=== PATIENT | male | born 1945 | race Caucasian/White ===

== ENCOUNTER → 2016-10-29 | Outpatient (CLI) | payer BC ==
[2016-10-29 11:39] LABS: ALT 49 U/L (21-72); AST 37 U/L (17-59); Alkaline Phosphatase 87 U/L (38-126); Anion Gap 13 mmol/L; Blood Urea Nitrogen 16 mg/dL (9-20); Calcium 9.4 mg/dL (8.4-10.2); Carbon Dioxide 26 mmol/L (22-30); Chloride 102 mmol/L (98-107); Cholesterol 131 mg/dL (<200); Glucose 120 mg/dL (74-99); HDL Cholesterol 37 mg/dL (40-60); Non-African American GFR(MDRD) >60 (>60 ml/min/1.73 sqM); Potassium 4.3 mmol/L (3.5-5.1); Sodium 141 mmol/L (137-145); Total Bilirubin 0.8 mg/dL (0.2-1.3); Triglycerides 141 mg/dL (<150)
== END | disposition home or self-care (01) ==
LOC: LABWHC1 11:12
PROVIDERS: ATTEND Internal Medicine Endocrinology, Diabetes & Metabolism
DX: E11.65 Type 2 diabetes mellitus with hyperglycemia (principal)
CPT/HCPCS: 36415; 80053; 80061; 82043; 84443

== ENCOUNTER → 2018-03-04 | Outpatient (CLI) | payer BC ==
[2018-03-04 08:32] LABS: ALT 43 U/L (21-72); AST 37 U/L (17-59); Albumin 4.2 g/dL (3.5-5.0); Alkaline Phosphatase 102 U/L (38-126); Anion Gap 12 mmol/L; Blood Urea Nitrogen 18 mg/dL (9-20); Calcium 9.1 mg/dL (8.4-10.2); Carbon Dioxide 27 mmol/L (22-30); Chloride 101 mmol/L (98-107); Cholesterol 144 mg/dL (<200); Glucose 201 mg/dL (74-99); HDL Cholesterol 32 mg/dL (40-60); LDL Cholesterol,Calculated 67 mg/dL (0-99); Potassium 4.9 mmol/L (3.5-5.1); Sodium 140 mmol/L (137-145); Total Bilirubin 0.4 mg/dL (0.2-1.3); Total Protein 6.9 g/dL (6.3-8.2); Triglycerides 227 mg/dL (<150)
[2018-03-04 19:30] LABS: Hemoglobin A1C 9.2 % (4.0-6.0)
== END | disposition home or self-care (01) ==
LOC: LABWHC1 07:27
PROVIDERS: ATTEND Internal Medicine Endocrinology, Diabetes & Metabolism
DX: E11.65 Type 2 diabetes mellitus with hyperglycemia (principal)
CPT/HCPCS: 36415; 80053; 80061; 82043; 82570; 83036

== ENCOUNTER → 2019-05-19 | Outpatient (CLI) | payer BC ==
--- NOTE | 2019-05-19 12:38 | ECHOS ---
STRESS ECHOCARDIOGRAM INDICATIONS: Chest pain, fatigue. BASELINE HEART RATE: 95 BASELINE BLOOD PRESSURE: 116/73 MAXIMUM HEART RATE: 141 MAXIMUM BLOOD PRESSURE: 144/40 85% MPHR: 124 100% MPHR: 146 METS: 6.2 MAXIMUM STAGE REACHED: 2 TOTAL EXERCISE TIME: 4:30 CLINICAL INFORMATION: STRESS DATA: Heart rate 95, pressure 116/73 mmHg. Baseline EKG showed sinus mechanism. The patient exercised on the Josse protocol for a total of 4 minutes and achieved 6.2 METS. Max heart rate was 141, which is about 96% of maximum predicted heart rate. Maximum blood pressure was 144/40 mmHg. Clinically, the patient developed shortness of breath in response to exercise. The EKG did not show any significant ST or T-wave abnormalities concerning for ischemia. ECHOCARDIOGRAM IMAGES: Echocardiogram images from parasternal long axis view, parasternal short axis view, apical 4 chamber and apical 2 chamber view were obtained at the baseline images, at peak heart rate as well as on recovery and the echocardiogram images showed good augmentation in the left ventricular systolic function. CONCLUSION: 1. Average exercise tolerance. 2. Good augmentation in the blood pressure and heart rate in response to exercise. 3. Normal EKG in response to exercise. 4. Normal echocardiogram in response to exercise as well. 5. Essentially normal stress echocardiogram for this patient. MMODL / IJN: [id number] /
== END | disposition home or self-care (01) ==
LOC: RADNMMAIN 09:58
PROVIDERS: ATTEND Family Medicine
DX: R06.02 Shortness of breath (principal); R53.83 Other fatigue
CPT/HCPCS: 93351; Q9950

== ENCOUNTER 2019-06-13 05:53 | Day surgery (SDC) | payer BC ==
[2019-06-13] MEDS ORDERED: ALPRAZolam 0.5 MG TAB PO PRN (06:05)
[2019-06-13] MEDS ORDERED: ATORVASTATIN 80 MG TAB PO STA (06:05)
[2019-06-13] MEDS ORDERED: ALPRAZolam 0.25 MG TAB PO PRN (06:05)
[2019-06-13] MEDS ORDERED: ASPIRIN 325 MG TAB PO STA (06:05)
[2019-06-13] MEDS ORDERED: NITROGLYCERIN SL TABS 0.4 MG TAB SUBLINGUAL PRN ×2 (06:05→08:56)
[2019-06-13] MEDS ORDERED: SODIUM CHLORIDE 0.9% 1,000 ML in EMPTY BAG 1 BAG IV ONE (06:05)
[2019-06-13 06:36] LABS: Glucose,Whole Blood 417 mg/dL (75-99)
[2019-06-13] MEDS ORDERED: INSULIN ASPART (NovoLOG) 100 UNIT/ML VIAL SQ ONE (06:40)
[2019-06-13 06:51] LABS: Calcium 9.5 mg/dL (8.4-10.2); Potassium 4.8 mmol/L (3.5-5.1)
[2019-06-13] MEDS ORDERED: MIDAZOLAM PF (FBP) 2 MG/2 ML VIAL IVP ONE (07:41)
[2019-06-13] MEDS ORDERED: LIDOCAINE 1% INJ 10MG/ML (20 ML MDV) SQ ONE (07:48)
[2019-06-13] MEDS: VERAPAMIL SYRINGE (5 MG/10 ML) INTRAARTER ONE ×2 (07:51→08:35)
[2019-06-13] MEDS ORDERED: HEPARIN SODIUM 1,000 UN/ML (10ML VL) IV ONE (07:53)
[2019-06-13] MEDS ORDERED: BIVALIRUDIN BOLUS 250 MG/50 ML IV ONE (08:07)
[2019-06-13] MEDS ORDERED: BIVALIRUDIN 250 MG in SODIUM CHLORIDE 0.9% 50 ML IV ONE (08:08)
[2019-06-13] MEDS ORDERED: HYDROmorphone 1 MG/ML 1 ML SYRINGE IVP ONE (08:25)
[2019-06-13] MEDS ORDERED: NITROGLYCERIN 1000MCG/10ML SYRINGE INTRACORON ONE (08:27)
[2019-06-13] MEDS ORDERED: IOPAMIDOL-370 125ML BTL INJ ONE (08:31)
[2019-06-13] MEDS ORDERED: TICAGRELOR 90 MG TAB PO ONE (08:38)
[2019-06-13] MEDS ORDERED: ZOLPIDEM 5 MG TAB PO PRN (08:56)
[2019-06-13] MEDS ORDERED: MAG HYDROX/AL HYDROX/SIMETH 30 ML CUP PO PRN (08:56)
[2019-06-13] MEDS ORDERED: ATROPINE SULFATE 0.1 MG/ML 10ML SYRINGE IV PRN (08:56)
[2019-06-13] MEDS ORDERED: RX INFO: IV CONTRAST WAS GIVEN 1 EACH MISC MISCELLANE PRN (08:56)
[2019-06-13 09:08] LABS: Glucose,Whole Blood 319 mg/dL (75-99)
--- NOTE | 2019-06-13 09:35 | CC ---
CARDIAC CATHETERIZATION REPORT DATE OF SERVICE: 06/13/2019 PROCEDURE: 1. Left heart catheterization and coronary angiography. 2. PTCA and stenting of proximal circumflex coronary artery with a drug-eluting stent. PERFORMED BY: Dr. Osito Nolasco. SEDATION: Moderate conscious sedation time was 48 minutes. Patient was administered Versed and Dilaudid. His oxygen saturation, hemodynamics and EKG were monitored closely. CLINICAL INFORMATION: Mr. Rony Ashraf is a 74-year-old gentleman with a history of hypertension, hypercholesterolemia and type 2 diabetes insulin-requiring, has been having exertional shortness of breath, chest tightness and had equivocal stress test. He was seen and evaluated by Dr. Flores, advised cardiac cath given his risk factors, presentation, symptomatology and equivocal stress test. I talked to the patient at length yesterday and discussed with him the rationale, risks, benefits, and options. He understood all details and wished to proceed with the procedure. PROCEDURE NOTE: Under local anesthesia and strict aseptic precautions, a 6-Polish introducer was placed in the right radial artery. Using a JL3.5 and JR4 catheters, I performed selective coronary angiography and the same right catheter was used to check LV pressures. LV gram was not performed. I then noted that there was a significant proximal circumflex lesion and proceeded to perform PCI in the same setting. LV-gram was not performed. CARDIAC CATHETERIZATION FINDINGS: The left ventricular end-diastolic pressure was about 8 mmHg and there was no gradient across the aortic valve. CORONARY ANGIOGRAPHY FINDINGS: RIGHT CORONARY ARTERY: A large dominant vessel which has about a 40% lesion in the proximal portion. Distally the caliber improves and bifurcates into PDA and PLV, both of which supply a fair amount of myocardium. No other significant disease. RCA is therefore dominant, has a 40% proximal lesion. LEFT MAIN CORONARY ARTERY: Short, patent, disease-free vessel that bifurcates into LAD and circumflex. Left main itself is free of significant disease. There is also what seems to be high obtuse marginal and a ramus branch that seems to come off. LEFT ANTERIOR DESCENDING CORONARY ARTERY: Good caliber vessel extends along the anterior wall, gives off septal and diagonal branches. There is moderate calcification. In the midportion there is a 40% lesion involving the LAD after the origin of a septal branch and before the diagonal branch. The caliber of the vessel improves, after that runs all the way to the apex supplying a sizable amount of myocardium. LAD is therefore a calcified vessel, has a 40% lesion in the midportion, right after septal branch and before the diagonal branch. RAMUS INTERMEDIUS: Good caliber, good distribution vessel that runs laterally, supplies a fair amount of myocardium, has no significant disease, has minor irregularities. There is also another branch that comes off from the ramus which is also tortuous and free of significant disease. LEFT POSTERIOR CIRCUMFLEX CORONARY ARTERY: Technically nondominant vessel but has a fair-sized obtuse marginal that runs laterally. Very proximally in a tortuous area, there is a 90% stenosis after which a left atrial circumflex branch comes off and then it runs laterally. It continues as an obtuse marginal. Proximal circumflex, therefore has a 90% lesion, eccentric in nature located in a tortuous segment. Left ventriculogram was not performed. FINAL IMPRESSION: This patient has a right dominant system, 40% proximal right coronary artery and 40% mid LAD disease and ramus is free of significant disease. Circumflex has a proximal 80%-90% stenosis, eccentric in nature with some calcification. LV pressures are normal and there is no gradient across the aortic valve. RECOMMENDATION: I am recommending PCI of circumflex and proceeded to perform this in the same setting. PCI PROCEDURE DETAILS: I used a JL4 guide catheter of 6-Polish caliber. Initially, I used a whisper wire, but with this wire, I kept going into the left atrial circumflex branch. I therefore switched over to a run-through wire with a steep curve. With this, I was able to keep the wire in the obtuse marginal. A 2.25 caliber 12 mm trek balloon was used to pre- dilate the lesion. I then deployed an 8 mm 2.25 caliber Xience stent at 10 atmospheres. Patient had significant chest pain but no significant EKG changes. Excellent angiographic result without complication was achieved. The sheath was then taken out and TR band applied as per protocol. Patient received Angiomax bolus and infusion as per protocol and he also received 180 mg of Brilinta. Saturation of the fingers of the right hand after the sheath removed was 95%. Moderate conscious sedation time was 48 minutes. Patient was administered Versed and Dilaudid. His oxygen saturation, hemodynamics and EKG were monitored closely. Patient tolerated procedure well without complications. I expect he will be discharged tomorrow if he remains stable. He will be started on 80 mg of the atorvastatin, 25 mg of losartan at bedtime, beta blockers and also his insulin will be resumed. Findings were discussed with the patient and . YONATAN / BRENDON: [id number] /
[2019-06-13] MEDS: SODIUM CHLORIDE 0.9% 1,000 ML IV SCH ×2 (10:30→21:07)
[2019-06-13 10:59] VITALS: BMI 34.8
[2019-06-13 11:51] LABS: Glucose,Whole Blood 331 mg/dL (75-99)
[2019-06-13] MEDS: LINAGLIPTIN 5 MG TABLET PO SCH (12:48)
[2019-06-13 16:47] LABS: Glucose,Whole Blood 463 mg/dL (75-99)
[2019-06-13] MEDS: glipiZIDE 10 MG TAB PO SCH (17:03)
[2019-06-13] MEDS ORDERED: INSULIN REGULAR 100 UNIT/ML VIAL SQ SCH (17:30)
[2019-06-13 20:27] LABS: Glucose,Whole Blood 328 mg/dL (75-99)
[2019-06-13] MEDS ORDERED: LOSARTAN 25 MG TAB PO SCH (21:00)
[2019-06-13] MEDS: METOPROLOL TARTRATE 12.5 MG TAB PO SCH (21:05)
[2019-06-13] MEDS: GABAPENTIN 100 MG CAP PO SCH (21:06)
[2019-06-13] MEDS: INSULIN ASPART (NovoLOG) 100 UNIT/ML VIAL SQ SCH (22:38)
[2019-06-14 05:40] VITALS: TEMP 97.7
[2019-06-14 06:05] LABS: Basophils % (A) 0 %; Eosinophils % (A) 0 %; HCT 32.7 % (39.0-53.0); HGB 10.8 gm/dL (13.0-17.5); Lymphocytes # (A) 1.3 k/uL (1.0-4.8); Lymphocytes % (A) 17 %; Mean Platelet Volume 9.2; Monocytes # (A) 0.5 k/uL (0-1.0); Monocytes % (A) 7 %; Neutrophils # (A) 5.5 k/uL (1.3-7.7); Neutrophils % (A) 73 %; Platelet Count 121 k/uL (150-450); RBC 3.37 m/uL (4.30-5.90); RDW 13.5 % (11.5-15.5); WBC 7.5 k/uL (3.8-10.6)
[2019-06-14 06:14] LABS: Calcium 8.8 mg/dL (8.4-10.2); Potassium 4.3 mmol/L (3.5-5.1)
[2019-06-14 06:40] LABS: Glucose,Whole Blood 111 mg/dL (75-99)
[2019-06-14] MEDS: INSULIN ASPART (NovoLOG) 100 UNIT/ML VIAL SQ SCH (07:00)
[2019-06-14] MEDS: glipiZIDE 10 MG TAB PO SCH (07:11)
[2019-06-14] MEDS ORDERED: INSULIN REGULAR 100 UNIT/ML VIAL SQ SCH (07:30)
[2019-06-14] MEDS ORDERED: ASPIRIN 81 MG PO SCH (09:00)
[2019-06-14] MEDS ORDERED: NON FORMULARY DRUG (Liraglutide [Victoza 2-Pak] 1.8 MG) SQ SCH (09:00)
[2019-06-14] MEDS ORDERED: TICAGRELOR 90 MG TAB PO SCH (09:00)
[2019-06-14 09:12] VITALS: BP 101/58; PULSE 75; RESP 18
[2019-06-14] MEDS: GABAPENTIN 100 MG CAP PO SCH (09:28)
[2019-06-14] MEDS: METOPROLOL TARTRATE 12.5 MG TAB PO SCH (09:28)
[2019-06-14] MEDS: LINAGLIPTIN 5 MG TABLET PO SCH (09:29)
--- NOTE | 2019-06-14 10:04 | DS ---
DISCHARGE SUMMARY DATE OF ADMISSION: 06/13/2019 DATE OF DISCHARGE: 06/14/2019 DIAGNOSES: 1. Unstable angina. 2. Type 2 diabetes. 3. Hypertension. PROCEDURES PERFORMED: Left heart catheterization, PTCA and stenting of proximal circumflex with a drug- eluting stent. Mr. Ashraf is a gentleman with a history of type 2 diabetes, hypertension, hyperlipidemia. He had a cardiac cath performed by ma by right radial approach. Cath revealed and 80% to 90% proximal circumflex nondominant but significant vessel. This was addressed with a drug-eluting stent. He has moderate noncritical disease in mid LAD and proximal RCA. His right radial cath site is clean and dry. He is doing well. No chest pain or shortness of breath. EKG and laboratory data are good. Plan is to increase activity and discharge him on Brilinta, aspirin, atorvastatin, and losartan. All medications were reviewed and instructions regarding medications, diet, activity were given. He will be discharged today and see Dr. Flores in the office in one week. MMODL / IJN: [id number] /
[2019-06-14] MEDS ORDERED: ATORVASTATIN 80 MG TAB PO SCH (21:00)
[2019-06-15] MEDS ORDERED: metFORMIN 500 MG TAB PO SCH (08:30)
== END 2019-06-14 11:18 | disposition home or self-care (01) ==
LOC: CATHCVL 05:53 → 3SCARD 08:33 → CATHCVL 06-14 11:18
PROVIDERS: ATTEND Internal Medicine Interventional Cardiology
DX: I25.110 Atherosclerotic heart disease of native coronary artery with unstable angina pectoris (principal); I25.84 Coronary atherosclerosis due to calcified coronary lesion; I10 Essential (primary) hypertension; I77.1 Stricture of artery; E78.00 Pure hypercholesterolemia, unspecified; E11.9 Type 2 diabetes mellitus without complications; E66.9 Obesity, unspecified; Z68.34 Body mass index [BMI] 34.0-34.9, adult; Z79.4 Long term (current) use of insulin; Z79.899 Other long term (current) drug therapy; Z91.048 Other nonmedicinal substance allergy status
CPT/HCPCS: 93458; 80048 ×2; 85025; C9600; C1769 ×3; C1887; C1725; C1874; C1894; J2001; J1644; J1170; J0583; Q9967; J2250

== ENCOUNTER → 2019-09-09 | Outpatient (CLI) | payer BC ==
[2019-09-09 16:44] LABS: Anion Gap 11.6 mmol/L (4.00-12.00); BUN/Creat Ratio 18.57 Ratio (12.00-20.00); Calcium 9.8 mg/dL (8.7-10.3); Carbon Dioxide 28.4 mmol/L (21.6-31.8); Chol/HDL Ratio 3.17; LDL Cholesterol,Calculated 54.2 mg/dL (0.0-131.0); Non-African American GFR(CKD) 49.1 (60.0-200.0); Potassium 4.3 mmol/L (3.5-5.5); VLDL Calculation 21.8 mg/dL (5.00-40.00)
== END | disposition home or self-care (01) ==
LOC: LABWHC1 11:34
PROVIDERS: ATTEND Physician Assistant
DX: I10 Essential (primary) hypertension (principal); E78.5 Hyperlipidemia, unspecified
CPT/HCPCS: 36415; 80048; 80061

== ENCOUNTER → 2020-07-26 | Outpatient (CLI) | payer BC ==
--- NOTE | 2020-07-26 11:22 | CT ---
EXAMINATION TYPE: CT brain w con DATE OF EXAM: 07/26/2020 COMPARISON: 09/30/2014 HISTORY: Visual changes and headaches CT DLP: 1116.00 mGycm Automated exposure control for dose reduction was used. CONTRAST: CT scan of the head is performed with IV Contrast, patient injected with 100 ml mL of Isovue 300. FINDINGS: There is no abnormal enhancing mass or midline shift identified. The ventricles and sulci are within normal limits in size. The globes are intact and the visualized sinuses are clear. IMPRESSION: Negative contrast enhanced head CT exam.
--- NOTE | 2020-07-26 11:23 | CT ---
EXAMINATION TYPE: CT facial bones w con DATE OF EXAM: 07/26/2020 COMPARISON: None HISTORY: Vision changes CT DLP: 606.00 mGycm Automated exposure control for dose reduction was used. CONTRAST: CT scan of the facial bones is performed with IV Contrast, patient injected with 100 ml mL of Isovue 300. TECHNIQUE: CT scan of the sinuses is performed without contrast, axial images are obtained, coronal r eformatted images are also reviewed. FINDINGS: The paranasal sinuses including the frontal, ethmoid, sphenoid, and maxillary sinuses bila terally are well-aerated without abnormal opacification. The ostiomeatal complex is patent bilateral ly on the coronal images. Visualized portion of mastoid air cells show no abnormal opacification. The globes are intact bilate rally. There is no evidence for intra or extraconal lesion. No exophthalmos is identified. Extraocula r musculature appears within normal limits. IMPRESSION: No distinct abnormality is appreciated.
== END | disposition home or self-care (01) ==
LOC: RADCTMAIN 09:37
PROVIDERS: ATTEND Family Medicine
DX: G44.221 Chronic tension-type headache, intractable (principal); H53.8 Other visual disturbances
CPT/HCPCS: 82565; 84520; 70487; 70460; 36415; Q9967

== ENCOUNTER 2020-08-23 08:00 | Day surgery (SDC) | payer BC ==
[2020-08-21 10:00] VITALS: BMI 34.0
[~2020-08-23 08:00] MED LIST: ALPRAZolam 0.25 MG TAB PO PRN; ALPRAZolam 0.5 MG TAB PO PRN; ASPIRIN 325 MG TAB PO STA; NITROGLYCERIN SL TABS 0.4 MG TAB SUBLINGUAL PRN; SODIUM CHLORIDE 0.9% 1,000 ML in EMPTY BAG 1 BAG IV ONE
[2020-08-23 08:32] LABS: Glucose,Whole Blood 324 mg/dL (75-99)
[2020-08-23] MEDS ORDERED: SODIUM CHLORIDE 0.9% 1,000 ML IV ONE (08:40)
[2020-08-23 08:44] VITALS: RESP 16; TEMP 98.1
[2020-08-23 08:45] LABS: Basophils % (A) 0 %; Eosinophils # (A) 0.1 k/uL (0-0.7); Eosinophils % (A) 1 %; HCT 29.3 % (39.0-53.0); HGB 9.6 gm/dL (13.0-17.5); Lymphocytes # (A) 0.8 k/uL (1.0-4.8); Lymphocytes % (A) 9 %; MCH 29.3 pg (25.0-35.0); MCHC 32.8 g/dL (31.0-37.0); MCV 89.6 fL (80.0-100.0); Mean Platelet Volume 9.5; Monocytes # (A) 0.3 k/uL (0-1.0); Monocytes % (A) 3 %; Neutrophils # (A) 8.2 k/uL (1.3-7.7); Neutrophils % (A) 87 %; Platelet Count 158 k/uL (150-450); RBC 3.27 m/uL (4.30-5.90); RDW 15.8 % (11.5-15.5); WBC 9.4 k/uL (3.8-10.6)
[2020-08-23] MEDS ORDERED: fentaNYL (PF) 50 MCG/ML 2 ML AMP ONE (08:46)
[2020-08-23] MEDS ORDERED: LIDOCAINE 1% INJ 10MG/ML (20 ML MDV) ONE (08:46)
[2020-08-23] MEDS ORDERED: VERAPAMIL 2.5 MG/ML 2 ML AMP ONE ×2 (08:47→10:05)
[2020-08-23] MEDS: MIDAZOLAM 2 MG/2 ML VIAL IVP ONE ×2 (09:19→09:22)
[2020-08-23] MEDS ORDERED: fentaNYL (PF) 50 MCG/ML 2 ML AMP IVP ONE (09:19)
[2020-08-23 09:24] LABS: African American GFR (CKD) >90 (>60 ml/min/1.73 sqM); Anion Gap 5 mmol/L; Blood Urea Nitrogen 26 mg/dL (9-20); Calcium 8.5 mg/dL (8.4-10.2); Carbon Dioxide 23 mmol/L (22-30); Chloride 108 mmol/L (98-107); Glucose 305 mg/dL (74-99); Non-African American GFR(CKD) 85 (>60 ml/min/1.73 sqM); Potassium 4.7 mmol/L (3.5-5.1); Sodium 136 mmol/L (137-145)
[2020-08-23] MEDS: HEPARIN SODIUM 1,000 UN/ML (10ML VL) IV ONE ×2 (09:27→09:53)
[2020-08-23] MEDS ORDERED: HEPARIN SODIUM 1,000 UN/ML (10ML VL) ONE (09:28)
[2020-08-23] MEDS ORDERED: MIDAZOLAM 2 MG/2 ML VIAL IVP ONE (09:53)
[2020-08-23] MEDS ORDERED: IOPAMIDOL-370 50ML BTL INJ ONE (10:05)
[2020-08-23] MEDS ORDERED: IOPAMIDOL-370 125ML BTL INJ ONE (10:05)
[2020-08-23] MEDS ORDERED: RX INFO: IV CONTRAST WAS GIVEN 1 EACH MISC MISCELLANE PRN (10:21)
[2020-08-23] MEDS ORDERED: INSULIN ASPART (NovoLOG) 100 UNIT/ML VIAL SQ ONE (10:22)
[2020-08-23 10:24] LABS: Glucose,Whole Blood 290 mg/dL (75-99)
--- NOTE | 2020-08-23 10:39 | P.CARDCATH ---
Description of Procedure: PROCEDURES PERFORMED: Left heart catheterization, bilateral coronary angiography, left ventriculogram, iFR of proximal RCA INDICATION: Class III angina, prior PCI HISTORY: Patient is a pleasant 75-year-old male with history of hypertension, hyperlipidemia, prior coronary artery disease with PCI of the circumflex 06/13/2019, diabetes mellitus, prostate cancer 2 years ago status post radiation and in remission per patient, anemia with GI bleed with continued hematochezia every time he has a bowel movement with prior mention of a colonic mass. He did have an abnormal stress test in June of last year and had stenting of his circumflex and states he felt great afterwards with improvement of chest pain. Unfortunately over the past few months he admits he has been having increased chest pain with exertion as well as fatigue, arm heaviness and shortness breath. Therefore recommendation was for a heart catheterization. CONSENT:I have discussed the risks, benefits and alternative therapies for the above-mentioned procedure and for both sedation/analgesia as well as necessary blood product administration, if indicated, as they pertain to this patient. The patient has indicated understanding and acceptance of the risks and procedures discussed. PROCEDURE: After the risks, benefits and alternatives of the above mentioned procedure explained in detail with the patient, informed consent was obtained. Patient was taken to the catheterization lab and prepped and draped in usual fashion. 1% lidocaine was used to anesthetize the right radial artery. A 6- [place] African sheath was placed in the right radial artery using modified Seldinger technique. Left coronary angiography was performed with a 5-[place] African JL 3.5 catheter and right coronary angiography was performed with a 5-[place] African JR5 catheter in various views. A 6-[place] African pigtail catheter was inserted into the left ventricle and pressure measurements were obtained. Left ventriculography was performed in the ANDRADE projection with a power injection. There was moderate disease of the proximal RCA and therefore iFR was performed. Heparin was given. The RCA was engaged with an AL 0.75 guide and the pressure wire was normalized. The first iFR reading had significant drift on pullback however 2nd reading had no drift with a normal iFR reading of 0.94. The wire and catheter were removed. The right radial sheath was removed and a TR band was placed with hemostasis achieved. The patient tolerated the procedure well. Patient was transported back to the post catheterization holding area in stable condition. Conscious Sedation: Patient was monitored under the direct supervision of vision of myself for conscious sedation using Versed and fentanyl for a total duration of 44 minutes HEMODYNAMICS: Aorta: 121/58 LV: 116/10, LVEDP 27 SELECTIVE CORONARY ARTERIOGRAPHY: LEFT MAIN: The left main is a large caliber vessel which trifurcates into the LAD, ramus and circumflex. There is no significant stenosis. LEFT ANTERIOR DESCENDING CORONARY ARTERY: LAD is a large caliber vessel which wraps around to the apex. There is a mid LAD 50% stenosis just proximal to a moderate caliber diagonal 1 branch. Otherwise there are mild luminal irregularities. RAMUS INTERMEDIUS: There is a proximal 30% stenosis and otherwise mild luminal irregularities. LEFT CIRCUMFLEX CORONARY ARTERY: Left circumflex is a moderate caliber vessel. There is a proximal circumflex stent which is patent without significant stenosis. There are otherwise mild luminal irregularities and it gives off a small caliber OM1. RIGHT CORONARY ARTERY: The right coronary artery is a large caliber vessel which gives off a PDA and PLV branch and is the dominant vessel. There is an ostial RCA 50% stenosis. There is a proximal PDA 50% stenosis and otherwise mild luminal irregularities. LEFT VENTRICULOGRAPHY: Left ventricular ejection fraction is 60% without wall motion abnormalities. There is no significant mitral regurgitation and no significant gradient with pullback across the aortic valve. FINAL IMPRESSION: 1. CAD as described above including proximal RCA 50% stenosis (iFR negative at 0.94), proximal PDA 50% stenosis and mid LAD 50% stenosis as described above. Patent circumflex stent. 2. Normal ejection fraction 60% percent without wall motion abnormalities. 3. Elevated left sided pressures. 4. Anemia with history of continued GIB and concern of colonic mass. PLAN: 1. Aggressive risk factor modification per most recent ACC/AHA guidelines. 2. Shortness of breath and chest pains may be related to mild anemia and elevated left sided filling pressures. Would consider stopping Plavix given it has been 12 months since prior intervention and patient is having continued GIB. Uptitrate antianginals as able. 3. Followup with Dr Flores in 1 week.
[2020-08-23] MEDS ORDERED: INSULIN ASPART (NovoLOG) 100 UNIT/ML VIAL SQ SCH (12:30)
[2020-08-23 14:30] VITALS: BP 131/69; PULSE 67
== END 2020-08-23 14:04 | disposition home or self-care (01) ==
LOC: CATHCVL 08:00
PROVIDERS: ATTEND Internal Medicine
DX: I25.119 Atherosclerotic heart disease of native coronary artery with unspecified angina pectoris (principal); R07.89 Other chest pain; R06.02 Shortness of breath; R53.83 Other fatigue; R29.898 Other symptoms and signs involving the musculoskeletal system; I10 Essential (primary) hypertension; E11.9 Type 2 diabetes mellitus without complications; C61 Malignant neoplasm of prostate; E78.2 Mixed hyperlipidemia; D64.9 Anemia, unspecified; K92.1 Melena; K63.9 Disease of intestine, unspecified; Z91.041 Radiographic dye allergy status; Z79.4 Long term (current) use of insulin; Z79.899 Other long term (current) drug therapy; Z79.02 Long term (current) use of antithrombotics/antiplatelets; Z79.82 Long term (current) use of aspirin; Z91.048 Other nonmedicinal substance allergy status; Z95.5 Presence of coronary angioplasty implant and graft; Z92.3 Personal history of irradiation; Z98.890 Other specified postprocedural states
CPT/HCPCS: 93571; 93458; 80048; 85025; C1887; C1769; C1894; J2250; J3010; J1644; Q9967 ×2

== ENCOUNTER → 2021-07-29 | Outpatient (CLI) | payer BC ==
[2021-07-29 18:53] LABS: Basophils # (A) 0.04 X 10*3/uL (0.00-0.10); Basophils % (A) 0.5 %; Eosinophils # (A) 0.19 X 10*3/uL (0.04-0.35); Eosinophils % (A) 2.5 %; HCT 40.5 % (39.6-50.0); HGB 13.3 g/dL (13.0-17.0); Lymphocytes # (A) 1.77 X 10*3/uL (0.90-5.00); Lymphocytes % (A) 23.7 %; MCH 32.1 pg (27.0-32.0); MCHC 32.8 g/dL (32.0-37.0); MCV 97.8 fL (80.0-97.0); Mean Platelet Volume 12.3 fL (9.5-12.2); Monocytes # (A) 0.89 X 10*3/uL (0.20-1.00); Monocytes % (A) 11.9 %; Neutrophils # (A) 4.56 X 10*3/uL (1.80-7.70); Neutrophils % (A) 61.3 %; Platelet Count 176 X 10*3/uL (140-440); RBC 4.14 X 10*6/uL (4.40-5.60); RDW 14.8 % (11.5-14.5); WBC 7.46 X 10*3/uL (4.50-10.00)
[2021-07-29 20:36] LABS: Estradiol 25.5 pg/mL; LDL Cholesterol,Calculated 58.8 mg/dL (0.0-131.0)
[2021-07-29 20:48] LABS: Microalbumin Creatinine Ratio <30 mg/g Creat (0-30); Urine Creatinine 27.6 mg/dL (39.0-259.0)
[2021-07-29 21:50] LABS: ALT 32 U/L (10-49); AST 27 U/L (14-35); African American GFR (CKD) 75.2 (60.0-200.0); Albumin 4.5 g/dL (3.8-4.9); Alkaline Phosphatase 121 U/L (41-126); BUN/Creat Ratio 15.55 Ratio (12.00-20.00); Bilirubin, Conjugated <0.20 mg/dL (0.20-0.40); Blood Urea Nitrogen 17.1 mg/dL (9.0-27.0); Calcium 9.2 mg/dL (8.7-10.3); Carbon Dioxide 23.3 mmol/L (20.0-27.5); Chloride 99 mmol/L (96-109); Glucose 115 mg/dL (70-110); Non-African American GFR(CKD) 64.9 (60.0-200.0); Potassium 4.6 mmol/L (3.5-5.5); Sodium 138 mmol/L (135-145); Total Protein 7.5 g/dL (6.2-8.2)
== END | disposition home or self-care (01) ==
LOC: LABWHC1 09:12
PROVIDERS: ATTEND Nurse Practitioner Adult Health
DX: E11.9 Type 2 diabetes mellitus without complications (principal); E29.1 Testicular hypofunction
CPT/HCPCS: 36415; 80048; 80061; 80076; 82040; 82043; 82570; 82670; 83036; 84153; 84270; 84403; 85025

== ENCOUNTER → 2022-02-10 | Outpatient (CLI) | payer BC ==
--- NOTE | 2022-02-10 19:01 | US ---
EXAMINATION TYPE: US venous doppler duplex LE RT DATE OF EXAM: 02/10/2022 2:49 PM COMPARISON: NONE CLINICAL HISTORY: 76-year-old male M79.651 RT thigh pain. SIDE PERFORMED: Right TECHNIQUE: The lower extremity deep venous system is examined utilizing real time linear array sonog dwight with graded compression, doppler sonography and color-flow sonography. FINDINGS: VESSELS IMAGED: Common Femoral Vein Deep Femoral Vein Greater Saphenous Vein * Femoral Vein Popliteal Vein Small Saphenous Vein * Proximal Calf Veins (* superficial vessels) Cardiovascular Disease Specialist notes: Rouleau flow noted throughout, Additional color images taken over patient's area o f pain (along the mid to lower femoral vein), as patient did not tolerate compressions well. Right Leg: Negative for DVT IMPRESSION: No evidence for DVT within the right lower extremity imaged from the groin to the upper calf. Some sl ow flow is noted throughout.
== END | disposition home or self-care (01) ==
LOC: RADUSWWP 14:23
PROVIDERS: ATTEND Family Medicine
DX: M79.651 Pain in right thigh (principal)

== ENCOUNTER 2024-09-11 12:18 | Observation (INO) | payer MEDICARE ==
[2024-09-11 15:28] LABS: ALT 34 U/L (4-49); AST 55 U/L (17-59); African American GFR (CKD) 79 (>60 ml/min/1.73 sqM); Albumin 3.7 g/dL (3.5-5.0); Alkaline Phosphatase 132 U/L (38-126); Anion Gap 11 mmol/L; Blood Urea Nitrogen 18 mg/dL (9-20); Calcium 8.9 mg/dL (8.4-10.2); Carbon Dioxide 21 mmol/L (22-30); Chloride 105 mmol/L (98-107); Glucose 74 mg/dL (74-99); Magnesium 1.8 mg/dL (1.6-2.3); Non-African American GFR(CKD) 68 (>60 ml/min/1.73 sqM); Potassium 4.5 mmol/L (3.5-5.1); Sodium 137 mmol/L (137-145); Total Bilirubin 0.9 mg/dL (0.2-1.3); Total Protein 6.3 g/dL (6.3-8.2)
[2024-09-11 15:34] LABS: Partial Thromboplastin Time 24.2 sec (22.0-30.0); Prothrombin Time 11.4 sec (10.0-12.5)
[2024-09-11 15:37] LABS: NT-Pro-B-Type Natriuretic Pept 544 pg/mL
--- NOTE | 2024-09-11 15:38 | XR ---
EXAMINATION TYPE: XR chest 2V DATE OF EXAM: 09/11/2024 CLINICAL HISTORY: Difficulty in breathing. TECHNIQUE: Frontal and lateral views of the chest are obtained. COMPARISON: None FINDINGS: There are bibasilar opacities and mild cardiomegaly. No pleural effusion or pneumothorax s een bilaterally. The osseous structures are intact. IMPRESSION: Mild cardiomegaly with bibasilar acute infiltrates and/or atelectasis. [facility], , 09/11/2024 3:36 PM
[2024-09-11 15:43] LABS: Basophils % (A) 0 %; Eosinophils % (A) 0 %; HCT 38.7 % (39.0-53.0); Lymphocytes # (A) 0.7 k/uL (1.0-4.8); Lymphocytes % (A) 9 %; MCH 31.8 pg (25.0-35.0); MCHC 33.7 g/dL (31.0-37.0); MCV 94.6 fL (80.0-100.0); Mean Platelet Volume 9.1; Monocytes # (A) 0.5 k/uL (0-1.0); Monocytes % (A) 7 %; Neutrophils # (A) 6.3 k/uL (1.3-7.7); Neutrophils % (A) 82 %; Platelet Count 121 k/uL (150-450); RDW 15.2 % (11.5-15.5); WBC 7.7 k/uL (3.8-10.6)
[2024-09-11 16:00] LABS: Glucose,Whole Blood 71 mg/dL (70-110)
--- NOTE | 2024-09-11 18:02 | ED ---
General Adult HPI - General Chief complaint: Upper Respiratory Infection Stated complaint: SOB Source: patient, RN notes reviewed, old records reviewed Mode of arrival: ambulatory Limitations: no limitations - History of Present Illness Initial comments: 79-year-old male presents for evaluation of cough, generalized weakness, nausea vomiting diarrhea. Patient symptoms began 2 weeks ago with nausea vomiting and diarrhea which lasted several days. He had an interval period of improvement and then developed cough. Patient has history of COPD. He is also reported a 6-month history of right calf pain and cramping. Subjective fever and chills. No central chest pain. - Related Data Home Medications Medication Instructions Recorded Confirmed Furosemide [Lasix] 20 mg PO DAILY 09/30/14 08/23/20 glipiZIDE [Glucotrol] 10 mg PO AC-BID 09/30/14 08/23/20 gemfibroziL [Lopid] 600 mg PO BID 06/09/19 08/23/20 Albuterol Inhaler [Ventolin Hfa 2 puff INHALATION QID PRN 08/21/20 08/23/20 Inhaler] Aspirin 81 mg PO DAILY 08/21/20 08/23/20 Budesonide/Formoterol Fumarate 2 puff INHALATION BID 08/21/20 08/23/20 [Symbicort 160-4.5 Mcg Inhaler] Clopidogrel Bisulfate [Plavix] 75 mg PO DAILY 08/21/20 08/23/20 Insulin NPH Human Isophane 37 units SQ BID 08/21/20 08/23/20 [NovoLIN N] Isosorbide Mononitrate ER [Imdur] 30 mg PO DAILY 08/21/20 08/23/20 Laxative 1 tab PO QAM 08/21/20 08/23/20 Losartan [Cozaar] 25 mg PO BID 08/21/20 08/23/20 Metoprolol Tartrate [Lopressor] 12.5 mg PO HS 08/21/20 08/23/20 Montelukast [Singulair] 10 mg PO DAILY 08/21/20 08/23/20 oxyBUTYnin chloride [Ditropan XL] 5 mg PO DAILY 08/21/20 08/23/20 sitaGLIPtin PHOS/metFORMIN HCL 1 each PO BID 08/21/20 08/23/20 [Janumet 50-1,000 mg Tablet] Previous Rx's Medication Instructions Recorded Atorvastatin [Lipitor] 80 mg PO HS #30 tab 06/14/19 Nitroglycerin Sl Tabs [Nitrostat] 0.4 mg SUBLINGUAL Q5M PRN #25 tab 06/14/19 Allergies Allergy/AdvReac Type Severity Reaction Status Date / Time Iodine and Iodide Containing Allergy Dyspnea Verified 09/11/24 13:03 Produc Review of Systems ROS Statement: Those systems with pertinent positive or pertinent negative responses have been documented in the HPI. ROS Other: All systems not noted in ROS Statement are negative. 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 neuropathy IN BOTH FEET. TIA ONLY. STAGE 3 KIDNEY DISEASE. DIVERTICULITIS. PNEUMOTHORAX LEFT, WITH CHEST TUBE. History of Any Multi-Drug Resistant Organisms: None Reported Past Surgical History: Appendectomy, Back Surgery, Bladder Surgery, Heart Catheterization With Stent, Orthopedic Surgery Additional Past Surgical History / Comment(s): BILATERAL SHOULDER, BOTH ELBOWS. bladder bx. BILATERAL CATARACT WITH LENS IMPLANT. LASER RIGHT EYE FOR GLAUCOMA,heart stent x1 Past Anesthesia/Blood Transfusion Reactions: No Reported Reaction Date of Last Stent Placement:: 2018 Past Psychological History: Depression Smoking Status: Never smoker - Past Family History Mother Family Medical History: No Reported History General Exam Limitations: no limitations General appearance: alert, in no apparent distress Head exam: Present: atraumatic, normocephalic Eye exam: Present: normal appearance, PERRL ENT exam: Present: mucous membranes dry Neck exam: Present: normal inspection. Absent: tenderness, meningismus Respiratory exam: Present: wheezes, rhonchi. Absent: respiratory distress Cardiovascular Exam: Present: regular rate, normal rhythm GI/Abdominal exam: Present: soft. Absent: distended, tenderness Extremities exam: Present: calf tenderness Neurological exam: Present: alert, oriented X3, CN II-XII intact. Absent: motor sensory deficit Psychiatric exam: Present: normal affect, normal mood Skin exam: Present: warm, dry, intact. Absent: cyanosis, diaphoretic Course Vital Signs 09/11/24 09/11/24 13:00 18:16 Temperature 99.5 F Pulse Rate 103 H Respiratory 24 Rate Blood Pressure 114/54 O2 Sat by Pulse 92 L 93 L Oximetry - Reevaluation(s) Reevaluation #1: 09/11/24 18:38 Ultrasound of the right lower extremity to rule out DVT is pending Medical Decision Making - Medical Decision Making Was pt. sent in by a medical professional or institution (AMERICO Garay, LINE TECHNICIAN, urgent care, hospital, or fdc...) When possible be specific @ -No Did you speak to anyone other than the patient for history (EMS, parent, family, police, friend...)? What history was obtained from this source @ -No Did you review nursing and triage notes (agree or disagree)? Why? @ -I reviewed and agree with nursing and triage notes Were old charts reviewed (outside hosp., previous admission, EMS record, old EKG, old radiological studies, urgent care reports/EKG's, fdc records)? Report findings @ -No old charts were reviewed Differential Dyspnea: Coronary syndrome, arrhythmia, tamponade, asthma, COPD, pulmonary embolism, pneumonia, pneumothorax, pulmonary effusion, anaphylaxis, diabetic ketoacidosis, flailed chest, pulmonary contusion, diaphragmatic rupture, anemia, neuromuscular, this is not meant to be an all-inclusive list. EKG interpreted by me (3pts min.). @ -Sinus tach rate of 104, PA interval 176, QRS duration 94, QTc [address] segment elevation. X-rays interpreted by me (1pt min.). @ -[Chest x-ray shows bilateral atelectasis CT interpreted by me (1pt min.). @ -None done U/S interpreted by me (1pt. min.). @ -None done What testing was considered but not performed or refused? (CT, X-rays, U/S, labs)? Why? @ -None What meds were considered but not given or refused? Why? @ -None Did you discuss the management of the patient with other professionals (professionals i.e. AMERICO Garay, LINE TECHNICIAN, lab, RT, psych nurse, social media content manager, building mover, teacher, property disposal officer, caser in)? Give summary @ -Case discussed with [facility] Was smoking cessation discussed for >3mins.? @ -No Was critical care preformed (if so, how long)? @ -No Were there social determinants of health that impacted care today? How? (Homelessness, low income, unemployed, alcoholism, drug addiction, transportation, low edu. Level, literacy, decrease access to med. care, nursing home, rehab)? @ -No Was there de-escalation of care discussed even if they declined (Discuss DNR or withdrawal of care, Hospice)? DNR status @ -No What co-morbidities impacted this encounter? (DM, HTN, Smoking, COPD, CAD, Cancer, CVA, ARF, Chemo, Hep., AIDS, mental health diagnosis, sleep apnea, morbid obesity)? @ -COPD Was patient admitted / discharged? Hospital course, mention meds given and route, prescriptions, significant lab abnormalities, going to OR and other pe rtinent info. @ -[79-year-old male with cough, dyspnea, hypoxia. Patient requires 2 L by nasal cannula for hypoxia at 89%. He has wheezing in bilateral lung olmedo. He has chest x-ray showing bilateral atelectasis. Does test positive for influenza A. Patient will be admitted for treatment of COPD exacerbation secondary to influenza. Undiagnosed new problem with uncertain prognosis? @ -No Drug Therapy requiring intensive monitoring for toxicity (Heparin, Nitro, Insulin, Cardizem)? @ -No Were any procedures done? @ -No Diagnosis/symptom? @COPD, hypoxia, influenza Acute, or Chronic, or Acute on Chronic? @Acute Uncomplicated (without systemic symptoms) or Complicated (systemic symptoms)? @ -Default Side effects of treatment? @ -No Exacerbation, Progression, or Severe Exacerbation? @ -No Poses a threat to life or bodily function? How? (Chest pain, [place], [place], pneumonia, PE, COPD, DKA, ARF, appy, cholecystitis, CVA, Diverticulitis, Homicidal, Suicidal, threat to staff... and all critical care pts) @ -Yes, hypoxia, COPD, respiratory failure - Lab Data Result diagrams: 09/11/24 15:07 09/11/24 15:07 Lab Results 09/11/24 09/11/24 09/11/24 Range/Units 15:07 15:07 15:07 WBC 7.7 (3.8-10.6) k/uL RBC 4.10 L (4.30-5.90) m/uL Hgb 13.0 (13.0-17.5) gm/dL Hct 38.7 L (39.0-53.0) % MCV 94.6 (80.0-100.0) fL MCH 31.8 (25.0-35.0) pg MCHC 33.7 (31.0-37.0) g/dL RDW 15.2 (11.5-15.5) % Plt Count 121 L (150-450) k/uL MPV 9.1 Neutrophils % 82 % Lymphocytes % 9 % Monocytes % 7 % Eosinophils % 0 % Basophils % 0 % Neutrophils # 6.3 (1.3-7.7) k/uL Lymphocytes # 0.7 L (1.0-4.8) k/uL Monocytes # 0.5 (0-1.0) k/uL Eosinophils # 0.0 (0-0.7) k/uL Basophils # 0.0 (0-0.2) k/uL PT 11.4 (10.0-12.5) sec INR 1.0 (<1.2) APTT 24.2 (22.0-30.0) sec Sodium 137 (137-145) mmol/L Potassium 4.5 (3.5-5.1) mmol/L Chloride 105 (98-107) mmol/L Carbon Dioxide 21 L (22-30) mmol/L Anion Gap 11 mmol/L BUN 18 (9-20) mg/dL Creatinine 1.04 (0.66-1.25) mg/dL Est GFR (CKD-EPI)AfAm 79 (>60 ml/min/1.73 sqM) Est GFR (CKD-EPI)NonAf 68 (>60 ml/min/1.73 sqM) Glucose 74 (74-99) mg/dL POC Glucose (mg/dL) (70-110) mg/dL POC Glu Director Index ID Plasma Lactic Acid Reid (0.7-2.0) mmol/L Calcium 8.9 (8.4-10.2) mg/dL Magnesium 1.8 (1.6-2.3) mg/dL Total Bilirubin 0.9 (0.2-1.3) mg/dL AST 55 (17-59) U/L ALT 34 (4-49) U/L Alkaline Phosphatase 132 H (38-126) U/L Troponin I (0.000-0.034) ng/mL NT-Pro-B Natriuret Pep 544 pg/mL Total Protein 6.3 (6.3-8.2) g/dL Albumin 3.7 (3.5-5.0) g/dL Influenza Type A (PCR) (Not Detectd) Influenza Type B (PCR) (Not Detectd) RSV (PCR) (Not Detectd) SARS-CoV-2 (PCR) (Not Detectd) 09/11/24 09/11/24 09/11/24 Range/Units 15:07 15:07 15:07 WBC (3.8-10.6) k/uL RBC (4.30-5.90) m/uL Hgb (13.0-17.5) gm/dL Hct (39.0-53.0) % MCV (80.0-100.0) fL MCH (25.0-35.0) pg MCHC (31.0-37.0) g/dL RDW (11.5-15.5) % Plt Count (150-450) k/uL MPV Neutrophils % % Lymphocytes % % Monocytes % % Eosinophils % % Basophils % % Neutrophils # (1.3-7.7) k/uL Lymphocytes # (1.0-4.8) k/uL Monocytes # (0-1.0) k/uL Eosinophils # (0-0.7) k/uL Basophils # (0-0.2) k/uL PT (10.0-12.5) sec INR (<1.2) APTT (22.0-30.0) sec Sodium (137-145) mmol/L Potassium (3.5-5.1) mmol/L Chloride (98-107) mmol/L Carbon Dioxide (22-30) mmol/L Anion Gap mmol/L BUN (9-20) mg/dL Creatinine (0.66-1.25) mg/dL Est GFR (CKD-EPI)AfAm (>60 ml/min/1.73 sqM) Est GFR (CKD-EPI)NonAf (>60 ml/min/1.73 sqM) Glucose (74-99) mg/dL POC Glucose (mg/dL) (70-110) mg/dL POC Glu Director Index ID Plasma Lactic Acid Reid 0.9 (0.7-2.0) mmol/L Calcium (8.4-10.2) mg/dL Magnesium (1.6-2.3) mg/dL Total Bilirubin (0.2-1.3) mg/dL AST (17-59) U/L ALT (4-49) U/L Alkaline Phosphatase (38-126) U/L Troponin I <0.012 (0.000-0.034) ng/mL NT-Pro-B Natriuret Pep pg/mL Total Protein (6.3-8.2) g/dL Albumin (3.5-5.0) g/dL Influenza Type A (PCR) Detected A (Not Detectd) Influenza Type B (PCR) Not Detected (Not Detectd) RSV (PCR) Not Detected (Not Detectd) SARS-CoV-2 (PCR) Not Detected (Not Detectd) 09/11/24 Range/Units 15:56 WBC (3.8-10.6) k/uL RBC (4.30-5.90) m/uL Hgb (13.0-17.5) gm/dL Hct (39.0-53.0) % MCV (80.0-100.0) fL MCH (25.0-35.0) pg MCHC (31.0-37.0) g/dL RDW (11.5-15.5) % Plt Count (150-450) k/uL MPV Neutrophils % % Lymphocytes % % Monocytes % % Eosinophils % % Basophils % % Neutrophils # (1.3-7.7) k/uL Lymphocytes # (1.0-4.8) k/uL Monocytes # (0-1.0) k/uL Eosinophils # (0-0.7) k/uL Basophils # (0-0.2) k/uL PT (10.0-12.5) sec INR (<1.2) APTT (22.0-30.0) sec Sodium (137-145) mmol/L Potassium (3.5-5.1) mmol/L Chloride (98-107) mmol/L Carbon Dioxide (22-30) mmol/L Anion Gap mmol/L BUN (9-20) mg/dL Creatinine (0.66-1.25) mg/dL Est GFR (CKD-EPI)AfAm (>60 ml/min/1.73 sqM) Est GFR (CKD-EPI)NonAf (>60 ml/min/1.73 sqM) Glucose (74-99) mg/dL POC Glucose (mg/dL) 71 (70-110) mg/dL POC Glu Director Index ID Kleber Chambers Plasma Lactic Acid Reid (0.7-2.0) mmol/L Calcium (8.4-10.2) mg/dL Magnesium (1.6-2.3) mg/dL Total Bilirubin (0.2-1.3) mg/dL AST (17-59) U/L ALT (4-49) U/L Alkaline Phosphatase (38-126) U/L Troponin I (0.000-0.034) ng/mL NT-Pro-B Natriuret Pep pg/mL Total Protein (6.3-8.2) g/dL Albumin (3.5-5.0) g/dL Influenza Type A (PCR) (Not Detectd) Influenza Type B (PCR) (Not Detectd) RSV (PCR) (Not Detectd) SARS-CoV-2 (PCR) (Not Detectd) Disposition Clinical Impression: Influenza, COPD exacerbation Disposition: ADMITTED IP TO THIS HOSP Condition: Stable Is patient prescribed a controlled substance at d/c from ED?: No Referrals: Verónica Nguyễn MD [Primary Care Provider] - 1-2 days Time of Disposition: 18:39
[2024-09-11] MEDS: OSELTAMIVIR 75 MG CAP PO STA (18:15)
[2024-09-11] MEDS: SODIUM CHLORIDE 0.9% 1,000 ML IV SCH (18:26)
[2024-09-11] MEDS ORDERED: NALOXONE 0.4 MG/ML 1 ML VIAL IVP PRN (18:35)
[2024-09-11] MEDS ORDERED: IPRATROPIUM-ALBUTEROL 3 ML NEB INHALATION PRN (18:35)
[2024-09-11] MEDS ORDERED: ACETAMINOPHEN TAB 325 MG TAB PO PRN (18:35)
[2024-09-11] MEDS: methylPREDNISolone SOD SUCCI 125 MG/2 ML VIAL IV SCH (18:54)
--- NOTE | 2024-09-11 19:16 | US ---
EXAMINATION TYPE: US venous doppler duplex LE RT DATE OF EXAM: 09/11/2024 6:53 PM COMPARISON: 02/10/2022 CLINICAL INDICATION: Male, 79 years old with history of pain/swelling; Patient SOB. Pain/ swelling. N o hx dvt. Not on thinners, Pain TECHNIQUE: The lower extremity deep venous system is examined utilizing real time linear array sonog dwight with graded compression, color doppler sonography, and spectral doppler. SIDE PERFORMED: Right FINDINGS: VESSELS IMAGED: Common Femoral Vein Deep Femoral Vein Greater Saphenous Vein * Femoral Vein Popliteal Vein Small Saphenous Vein * Proximal Calf Veins (* superficial vessels) Right Leg: Appears negative for dvt as best seen, Color Doppler imaging shows patency of the vessels . Spectral waveforms are within normal limits. Mid and distal femoral vein compression deferred due t o patient pain tolerance. Additional imaging in patients area of pain (outer calf), no abnormalities seen. IMPRESSION: No ultrasound evidence for deep venous thrombosis as visualized. No additional sonographic abnormalit y appreciated patients area of concern. [facility], , 09/11/2024 7:14 PM
[2024-09-11] MEDS: IPRATROPIUM-ALBUTEROL 3 ML NEB INHALATION SCH (20:15)
--- NOTE | 2024-09-11 20:41 | P.HPIM ---
History of Present Illness H&P Date: 09/11/24 Chief Complaint: Shortness of breath Patient is a 79-year-old male with past medical history of COPD, hypertension, hyperlipidemia, DM, CAD(PCI of circumflex 2019) and history of heart cath in 2019 who presents to the ED with & daughter. Patient endorses chief complaint of progressively worsening SOB over the last couple days. He also states he has had a productive cough with white phlegm, denies seeing any bloody sputum. Per patient's and daughter, they states that the patient had nausea, vomiting, diarrhea 2 weeks ago, but this is since resolved. Patient also endorses 1 low-grade fever measured at home 99. He states he has been having decreased appetite since yesterday. He also states that he has some chest pain with coughing and deep breathing. Additionally the patient does endorse some right calf tenderness. Patient's daughter also states that he has leg cramps and believes they may be due to his atorvastatin. ED documentation reviewed. Vitals on admission temperature 99.5, HR 103bpm, RR 24, BP 114/54, O2 saturation 92% EKG independently interpreted as sinus tachycardia with low QRS voltage with ventricular rate of 104 bpm and QTc of 364 ms CXR shows mild cardiomegaly with bibasilar acute infiltrates and/or atelectasis Venous Doppler of right lower extremity shows no signs of DVT. Labs on admission show WBCs 7.7, hemoglobin 13, platelets 121. PT 11.4 INR 1 PTT 24.2. Sodium 137 potassium 4.5 chloride 105 bicarb 21 BUN 18 creatinine 1.04 glucose 74. Lactic acid was 0.9. Viral serologies were positive for influenza A, negative for influenza B, RSV and COVID. Troponin negative. Review of systems: Pertinent positives and negatives as discussed in HPI, a complete review of systems was performed and all other systems are negative. Allergies: Iodine PCP: Dr. Verónica Nguyễn Social history: Tobacco: former Alcohol: occasionally Recreational drugs: none Travel: [place] Sick contacts: 's sister Physical examination: Vital signs reviewed General: nontoxic, no distress, appears at stated age Derm: warm, dry, intact Head: atraumatic, normocephalic, symmetric Eyes: anicteric sclera Mouth: no lip lesion, mucus membranes moist Cardiovascular: S1 S2 reg, no murmur Lungs: Rhonchorous breathing noted throughout lung olmedo, coughing with deep breathing throughout exam, expiratory wheezing noted Abdominal: soft, non-tender to palpation, nondistended Extremities: No cyanosis, clubbing, or pedal edema. Tenderness in right calf to palpation, no warmth, pulses palpable throughout Neuro: Alert, Oriented to person, time and place, Gross neurological examination did not reveal any focal deficits. Cranial nerves II to XII grossly intact. Bilateral upper and lower extremity muscle strength intact and sensation intact. Psych: well appearing, appropriate affect Assessment/Plan: 79-year-old with COPD, hypertension, CAD, DM presented for progressively worsening shortness of breath. Workup was remarkable for positive influenza A serology. Tamiflu was initiated by ED. I discussed the case with the ED doc and accepted the admission for upper respiratory infection and mild COPD exacerbation. Active: URI, positive for influenza A History of COPD, mild exacerbation No leukocytosis, lactic acid within normal limits, low-grade fever CXR shows mild cardiomegaly with bibasilar acute infiltrates and/or atelectasis Supplemental oxygen as needed, currently on room air to maintain O2 of at least 94% Tylenol 650 mg p.o. every 6 hours as needed for fevers Received 1 dose Tamiflu 75 mg in ED Continue Tamiflu 75 mg p.o. every 12 hours Continue DuoNebs QID and every 2 hours as needed Continue IV Solu-Medrol 60 mg every 6 hours Robitussin 10 cc every 6 hours as needed for cough Continue Trelegy Cardiac monitoring Monitor vital signs Monitor for signs of acute respiratory failure Right calf tenderness rule out DVT Venous Doppler showed no evidence of DVT Follow up D-dimer Chronic: Hypertension, currently normotensive Continue home meds Hyperlipidemia History of CAD with PCI in 2019 Continue atorvastatin 80 mg p.o. at bedtime Continue aspirin 81 mg daily Controlled DM type II, insulin-dependent Most recent A1c 6.9 Glucose checks per ACHS protocol Moderate sliding scale insulin Hypoglycemia precautions Possible ED based on his home meds Will hold home meds F: 0.9% NS at 75 mL/h E: Replete as needed N: Heart healthy diet A: As tolerated DVT prophylaxis: Lovenox 40 mg subcu daily The patient is admitted with an anticipated more than 2 midnight stay for influenza A and COPD exacerbation CODE STATUS: Full Code Discussed with: Patient Anticipated discharge place: Home I have seen and evaluated the patient today. I Discussed the case with the resident and agree with the resident's findings I edited the assessment and plan as necessary as documented in the resident's note. 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 neuropathy IN BOTH FEET. TIA ONLY. STAGE 3 KIDNEY DISEASE. DIVERTICULITIS. PNEUMOTHORAX LEFT, WITH CHEST TUBE. History of Any Multi-Drug Resistant Organisms: None Reported Past Surgical History: Appendectomy, Back Surgery, Bladder Surgery, Heart Catheterization With Stent, Orthopedic Surgery Additional Past Surgical History / Comment(s): BILATERAL SHOULDER, BOTH ELBOWS. bladder bx. BILATERAL CATARACT WITH LENS IMPLANT. LASER RIGHT EYE FOR GLAUCOMA,heart stent x1 Past Anesthesia/Blood Transfusion Reactions: No Reported Reaction Date of Last Stent Placement:: 2018 Past Psychological History: Depression Smoking Status: Never smoker - Past Family History Mother Family Medical History: No Reported History Medications and Allergies Home Medications Medication Instructions Recorded Confirmed Type Furosemide [Lasix] 20 mg PO MOWEFR 09/30/14 09/11/24 History gemfibroziL [Lopid] 600 mg PO BID 06/09/19 09/11/24 History Atorvastatin [Lipitor] 80 mg PO HS #30 tab 06/14/19 09/11/24 Rx Nitroglycerin Sl Tabs [Nitrostat] 0.4 mg SUBLINGUAL Q5M PRN #25 tab 06/14/19 09/11/24 Rx Aspirin 81 mg PO DAILY 08/21/20 09/11/24 History Insulin NPH Human Isophane 40 units SQ BID 08/21/20 09/11/24 History [NovoLIN N] Losartan [Cozaar] 25 mg PO HS 08/21/20 09/11/24 History Cholecalciferol (Vitamin D3) 50 mcg PO DAILY 09/11/24 09/11/24 History [Vitamin D3 (50 Mcg = 2000 Iu)] Cyanocobalamin (Vitamin B-12) 2,500 mcg PO DAILY 09/11/24 09/11/24 History [Vitamin B-12] Fluticasone/Umeclidin/Vilanter 1 puff INHALATION RT-DAILY 01/06/25 01/06/25 History [Trelegy Ellipta 200-62.5-25] Gabapentin [Neurontin] 300 mg PO DAILY 09/11/24 09/11/24 History Metoprolol Succinate [Metoprolol 25 mg PO DAILY 09/11/24 09/11/24 History Succinate ER] Semaglutide [Ozempic] 1 mg SQ MO 09/11/24 09/11/24 History Testosterone Cypionate 100 mg IM Q30D 09/11/24 09/11/24 History [Depo-Testosterone] tadalafiL [Cialis] 20 mg PO DAILY PRN 09/11/24 09/11/24 History Allergies Allergy/AdvReac Type Severity Reaction Status Date / Time Iodine and Iodide Containing Allergy Dyspnea Verified 09/11/24 19:03 Produc Physical Exam Vitals: Vital Signs Temp Pulse Resp BP Pulse Ox 09/11/24 18:16 93 L 09/11/24 13:00 99.5 F 103 H 24 114/54 92 L Intake and Output 09/11/24 09/11/24 09/11/24 06:59 14:59 22:59 Other: Weight 104.326 kg Results CBC & Chem 7: 09/11/24 15:07 09/11/24 15:07 Labs: Abnormal Lab Results - Last 24 Hours (Table) 09/11/24 09/11/24 09/11/24 Range/Units 15:07 15:07 15:07 RBC 4.10 L (4.30-5.90) m/uL Hct 38.7 L (39.0-53.0) % Plt Count 121 L (150-450) k/uL Lymphocytes # 0.7 L (1.0-4.8) k/uL Carbon Dioxide 21 L (22-30) mmol/L Alkaline Phosphatase 132 H (38-126) U/L Influenza Type A (PCR) Detected A (Not Detectd)
[2024-09-11] MEDS: OSELTAMIVIR 30 MG CAP PO SCH (23:35)
[2024-09-11] MEDS ORDERED: DEXTROSE 50% SYRINGE 50 ML IVP PRN ×2 (23:37)
[2024-09-12 00:55] LABS: Glucose,Whole Blood 200 mg/dL (70-110)
[2024-09-12] MEDS: FAMOTIDINE 20 MG/2 ML VIAL IV STA (02:48)
[2024-09-12] MEDS: methylPREDNISolone SOD SUCCI 40 MG/ML 1 ML VIAL IV STA (02:48)
[2024-09-12] MEDS: diphenhydrAMINE 50 MG/ML 1 ML VIAL IVP STA (02:48)
[2024-09-12] MEDS: methylPREDNISolone SOD SUCCI 125 MG/2 ML VIAL IV STA (02:51)
--- NOTE | 2024-09-12 05:17 | CT ---
EXAM: CT Angiography Chest With Intravenous Contrast CLINICAL HISTORY: ITS.REASON CT Reason: elevated d-dimer TECHNIQUE: Axial computed tomographic angiography images of the chest with intravenous contrast. CTDI is 16.1 mGy and DLP is 720.1 mGy-cm. This CT exam was performed using one or more of the following dose reduction techniques: automated exposure control, adjustment of the mA and/or kV according to patient size, and/or use of iterative reconstruction technique. Additional imaging of the abdomen was obtained. MIP reconstructed images were created and reviewed. COMPARISON: No relevant prior studies available. FINDINGS: Pulmonary arteries: Motion artifact limits evaluation. Despite this, no evidence of pulmonary embolism within the pulmonary outflow tract or immediate proximal branches. Aorta: Atherosclerotic disease. No thoracic aortic aneurysm. Lungs: Mild dependent atelectatic changes. No mass. No consolidation. Pleural space: Unremarkable. No significant effusion. No pneumothorax. Heart: Coronary artery calcifications. No cardiomegaly. No significant pericardial effusion. No evidence of RV dysfunction. Bones/joints: Degenerative changes in the spine. No acute fracture. No dislocation. Soft tissues: Unremarkable. Lymph nodes: Unremarkable. No enlarged lymph nodes. Liver: Normal visualized liver. Pancreas: Mild pancreatic atrophy. Spleen: Small splenule. Kidneys and ureters: The visualized kidneys are unremarkable. IMPRESSION: Motion artifact limits evaluation. Despite this, no evidence of pulmonary embolism within the pulmonary outflow tract or immediate proximal branches.
[2024-09-12 06:39] LABS: Glucose,Whole Blood 225 mg/dL (70-110)
[2024-09-12] MEDS: SYMBICORT 160-4.5 MCG INHALER INHALATION SCH (07:45)
[2024-09-12 08:43] LABS: Glucose,Whole Blood 250 mg/dL (70-110)
[2024-09-12] MEDS ORDERED: ASPIRIN 81 MG PO SCH (09:00)
[2024-09-12] MEDS: ENOXAPARIN 40 MG/0.4 ML SYRINGE SQ SCH (09:31)
[2024-09-12] MEDS: INSULIN ASPART (NovoLOG) 100 UNIT/ML VIAL SQ SCH (09:31)
[2024-09-12] MEDS: OSELTAMIVIR 75 MG CAP PO SCH (09:33)
[2024-09-12] MEDS: METOPROLOL SUCCINATE (ER) 25 MG TAB.ER.24H PO SCH (09:33)
[2024-09-12] MEDS: ASPIRIN 81 MG PO SCH (09:33)
[2024-09-12] MEDS: GABAPENTIN 300 MG CAP PO SCH (09:33)
[2024-09-12] MEDS: predniSONE 20 MG TAB PO SCH (09:33)
[2024-09-12 11:20] LABS: Glucose,Whole Blood 288 mg/dL (70-110)
[2024-09-12 16:48] LABS: Glucose,Whole Blood 381 mg/dL (70-110)
--- NOTE | 2024-09-12 17:46 | P.PN ---
Subjective Progress Note Date: 09/12/24 Hospital Course: A 79-year-old male with PMH medical history of COPD not on home oxygen, hypert ension, hyperlipidemia, DM, CAD s/p PCI to circumflex, who presented to the ED with progressively worsening SOB for the past several days associated with productive cough with white phlegm. Patient's vitals on admission 99.5 temperature, tachycardic to 100, blood pressure soft 114/54, EKG showed no acute ST changes, chest x-ray showed bibasilar acute infiltrates and/or atelectasis. Venous Doppler of the right lower extremity showed no DVT. He had no leukocytosis, hemoglobin normal and stable, creatinine normal stable, negative lactate purulent test positive for influenza. Patient was admitted for upper respiratory tract infection, acute influenza, mild exacerbation of COPD, started on Tamiflu, DuoNebs, steroids. CTA with motion artifact but no evidence of PE. Pertinent Imaging: CT chest and chest x-ray as above Subjective: States that he feels somewhat better today, still very short of breath. Pertinent positives and negatives as discussed above, a complete review of systems was performed and all other systems are negative. Vitals Signs Reviewed. General: [nontoxic], [no distress], [appears at stated age] Derm: [warm], [dry] Head: [atraumatic], [normocephalic], [symmetric] Eyes: [EOMI], [no lid lag], [anicteric sclera] Mouth: [no lip lesion], [mucus membranes moist] Cardiovascular: [S1S2 reg], [no murmur] Lungs: [CTA bilateral], [no rhonchi, no rales] , [no accessory muscle use] Abdominal: [soft], [ nontender to palpation], [no guarding], [no appreciable organomegaly] Ext: [no gross muscle atrophy], [no edema], [no contractures] Neuro: [ CN II-XI grossly intact], [no focal neuro deficits] Psych: [Alert], [oriented], [appropriate affect] Data Reviewed Today: Pertinent Labs: Mentioned in hospital course Assessment and Plan: Respiratory tract infection Influenza infection COPD, mild exacerbation -Continue with Tamiflu -Continue inhalers -Continue Robitussin -Continue Trelegy -Continue steroids: Prednisone 40 daily Hypertension: Continue home meds HLD History of CAD with PCI 2019 -Continue atorvastatin 80, continue aspirin Controlled DM type II, insulin-dependent -Most recent A1c 6.9 -Glucose checks per [facility] protocol -Moderate sliding scale insulin -Hypoglycemia precautions Anticipated discharge place: home Anticipated discharge time: 09/13 Objective - Vital Signs Vital signs: Vital Signs Temp 97.6 F 09/12/24 14:00 Pulse 94 09/12/24 15:45 Resp 17 09/12/24 14:00 BP 115/61 09/12/24 14:00 Pulse Ox 94 L 09/12/24 14:00 FiO2 Intake & Output 09/11/24 09/12/24 09/12/24 18:59 06:59 18:59 Weight 104.326 kg - Labs CBC & Chem 7: 09/11/24 15:07 09/11/24 15:07 Labs: Abnormal Lab Results - Last 24 Hours (Table) 09/11/24 09/11/24 09/12/24 Range/Units 15:07 23:59 00:53 D-Dimer 0.68 H (<0.60) mg/L FEU POC Glucose (mg/dL) 200 H (70-110) mg/dL Hemoglobin A1c 6.9 H (<=6.0) % 09/12/24 09/12/24 09/12/24 Range/Units 06:38 08:42 11:19 D-Dimer (<0.60) mg/L FEU POC Glucose (mg/dL) 225 H 250 H 288 H (70-110) mg/dL Hemoglobin A1c (<=6.0) % 09/12/24 Range/Units 16:47 D-Dimer (<0.60) mg/L FEU POC Glucose (mg/dL) 381 H (70-110) mg/dL Hemoglobin A1c (<=6.0) %
[2024-09-12 20:31] LABS: Glucose,Whole Blood 296 mg/dL (70-110)
[2024-09-12] MEDS: LOSARTAN 25 MG TAB PO SCH (22:30)
[2024-09-12] MEDS: ATORVASTATIN 80 MG TAB PO SCH (22:30)
[2024-09-12] MEDS: guaiFENesin-DM 100-10MG/5ML 10 ML CUP PO PRN (22:31)
[2024-09-13 07:08] LABS: Glucose,Whole Blood 230 mg/dL (70-110)
[2024-09-13 08:17] VITALS: BP 101/61; RESP 19; TEMP 97.4
[2024-09-13 09:09] LABS: Basophils % (A) 0 %; Eosinophils % (A) 0 %; HCT 39.4 % (39.0-53.0); HGB 12.7 gm/dL (13.0-17.5); Lymphocytes # (A) 1.5 k/uL (1.0-4.8); Lymphocytes % (A) 14 %; MCH 31.8 pg (25.0-35.0); MCHC 32.3 g/dL (31.0-37.0); MCV 98.5 fL (80.0-100.0); Mean Platelet Volume 9.2; Monocytes # (A) 0.6 k/uL (0-1.0); Monocytes % (A) 5 %; Neutrophils # (A) 8.9 k/uL (1.3-7.7); Neutrophils % (A) 80 %; Platelet Count 129 k/uL (150-450); RDW 14.7 % (11.5-15.5); WBC 11.1 k/uL (3.8-10.6)
[2024-09-13 10:17] LABS: African American GFR (CKD) 77 (>60 ml/min/1.73 sqM); Anion Gap 10 mmol/L; Blood Urea Nitrogen 31 mg/dL (9-20); Calcium 8.8 mg/dL (8.4-10.2); Carbon Dioxide 23 mmol/L (22-30); Chloride 104 mmol/L (98-107); Glucose 267 mg/dL (74-99); Non-African American GFR(CKD) 67 (>60 ml/min/1.73 sqM); Potassium 3.8 mmol/L (3.5-5.1); Sodium 137 mmol/L (137-145)
[2024-09-13 11:02] LABS: Glucose,Whole Blood 283 mg/dL (70-110)
[2024-09-13 11:25] VITALS: PULSE 96
--- NOTE | 2024-09-13 11:25 | P.DS ---
Providers Date of admission: 09/11/24 18:36 Attending physician: Robby Wilson Primary care physician: [facility] Hospital Course: Discharge Diagnosis: Upper respiratory tract infection Influenza A infection COPD, mild exacerbation Hypertension History of CAD with PCI Type II DM Hospital Course: A 79-year-old male with PMH medical history of COPD not on home oxygen, hypertension, hyperlipidemia, DM, CAD s/p PCI to circumflex, who presented to the ED with progressively worsening SOB for the past several days associated with productive cough with white phlegm. Patient's vitals on admission 99.5 temperature, tachycardic to 100, blood pressure soft 114/54, EKG showed no acute ST changes, chest x-ray showed bibasilar acute infiltrates and/or atelectasis. Venous Doppler of the right lower extremity showed no DVT. He had no leukocytosis, hemoglobin normal and stable, creatinine normal stable, negative lactate purulent test positive for influenza. Patient was admitted for upper respiratory tract infection, acute influenza, mild exacerbation of COPD, started on Tamiflu, DuoNebs, steroids. CTA with motion artifact but no evidence of PE. Patient was ambulated and did not require any oxygen. He will be discharged home to complete 5 days of Tamiflu and prednisone 40, DuoNebs.. Of note, patient complained of chronic diarrhea, mentioned that he was previously evaluated by GI. C. difficile test was ordered and came back negati ve. Patient to follow-up with PCP and GI at discharge. Patient seen and examined at bedside. Patient feels that his breathing is better, cough is still present, nonproductive Vital signs reviewed and stable. General: [nontoxic], [no distress], [appears at stated age], obese Derm: [warm], [dry] Head: [atraumatic], [normocephalic], [symmetric] Eyes: [EOMI], [no lid lag], [anicteric sclera] Mouth: [no lip lesion], [mucus membranes moist] Cardiovascular: [S1S2 reg], [no murmur] Lungs: [CTA bilateral], [no rhonchi, no rales] , [no accessory muscle use], few end expiratory wheezes appreciated, cleared after cough Abdominal: [soft], [ nontender to palpation], [no guarding], [no appreciable organomegaly] Ext: [no gross muscle atrophy], [no edema], [no contractures] Neuro: [ CN II-XI grossly intact], [no focal neuro deficits] Psych: [Alert], [oriented], [appropriate affect] A total of 40 minutes of time were spent preparing this complex discharge summary. Patient was discharged on 09/13/2024. Patient Condition at Discharge: Stable Plan - Discharge Summary Discharge Rx Participant: Yes New Discharge Prescriptions: No Action Furosemide [Lasix] 20 mg PO MOWEFR gemfibroziL [Lopid] 600 mg PO BID Atorvastatin [Lipitor] 80 mg PO HS #30 tab Nitroglycerin Sl Tabs [Nitrostat] 0.4 mg SUBLINGUAL Q5M PRN #25 tab PRN Reason: Chest Pain Insulin NPH Human Isophane [NovoLIN N] 40 units SQ BID Losartan [Cozaar] 25 mg PO HS Aspirin 81 mg PO DAILY Testosterone Cypionate [Depo-Testosterone] 100 mg IM Q30D Gabapentin [Neurontin] 300 mg PO DAILY Fluticasone/Umeclidin/Vilanter [Trelegy Ellipta 200-62.5-25] 1 puff INHALATION RT-DAILY tadalafiL [Cialis] 20 mg PO DAILY PRN PRN Reason: E.D. Semaglutide [Ozempic] 1 mg SQ MO Metoprolol Succinate [Metoprolol Succinate ER] 25 mg PO DAILY Cyanocobalamin (Vitamin B-12) [Vitamin B-12] 2,500 mcg PO DAILY Cholecalciferol (Vitamin D3) [Vitamin D3 (50 Mcg = 2000 Iu)] 50 mcg PO DAILY Discharge Medication List Furosemide [Lasix] 20 mg PO MOWEFR 09/30/14 [History] gemfibroziL [Lopid] 600 mg PO BID 06/09/19 [History] Atorvastatin [Lipitor] 80 mg PO HS #30 tab 06/14/19 [Rx] Nitroglycerin Sl Tabs [Nitrostat] 0.4 mg SUBLINGUAL Q5M PRN #25 tab 06/14/19 [Rx] Aspirin 81 mg PO DAILY 08/21/20 [History] Insulin NPH Human Isophane [NovoLIN N] 40 units SQ BID 08/21/20 [History] Losartan [Cozaar] 25 mg PO HS 12/16/20 [History] Cholecalciferol (Vitamin D3) [Vitamin D3 (50 Mcg = 2000 Iu)] 50 mcg PO DAILY 09/11/24 [History] Cyanocobalamin (Vitamin B-12) [Vitamin B-12] 2,500 mcg PO DAILY 09/11/24 [History] Fluticasone/Umeclidin/Vilanter [Trelegy Ellipta 200-62.5-25] 1 puff INHALATION RT-DAILY 09/11/24 [History] Gabapentin [Neurontin] 300 mg PO DAILY 09/11/24 [History] Metoprolol Succinate [Metoprolol Succinate ER] 25 mg PO DAILY 09/11/24 [History] Semaglutide [Ozempic] 1 mg SQ MO 09/11/24 [History] Testosterone Cypionate [Depo-Testosterone] 100 mg IM Q30D 09/11/24 [History] tadalafiL [Cialis] 20 mg PO DAILY PRN 09/11/24 [History] Follow up Appointment(s)/Referral(s): Verónica Nguyễn MD [Primary Care Provider] - 1-2 days
== END 2024-09-13 13:13 | disposition home or self-care (01) ==
LOC: EC 12:18 → 4SSUR 18:36 → 1SOBS 09-12 09:32
PROVIDERS: ADMIT Student in an Organized Health Care Education/Training Program; ATTEND Student in an Organized Health Care Education/Training Program
DX: J10.1 Influenza due to other identified influenza virus with other respiratory manifestations (principal); J44.1 Chronic obstructive pulmonary disease with (acute) exacerbation; E11.42 Type 2 diabetes mellitus with diabetic polyneuropathy; E78.5 Hyperlipidemia, unspecified; I11.0 Hypertensive heart disease with heart failure; I50.9 Heart failure, unspecified; I25.10 Atherosclerotic heart disease of native coronary artery without angina pectoris; Z79.02 Long term (current) use of antithrombotics/antiplatelets; Z79.4 Long term (current) use of insulin; Z79.51 Long term (current) use of inhaled steroids; Z79.82 Long term (current) use of aspirin; Z79.84 Long term (current) use of oral hypoglycemic drugs; Z79.899 Other long term (current) drug therapy; Z87.891 Personal history of nicotine dependence; Z95.5 Presence of coronary angioplasty implant and graft; Z86.73 Personal history of transient ischemic attack (TIA), and cerebral infarction without residual deficits
CPT/HCPCS: 96372 ×2; 96376 ×2; 96374; 96375; 99285; 36415; 94640 ×4; 94760; 93005; 85379; 83880; 80053; 80048; 83605; 83735; 84484; 85025 ×2; 85610; 85730; 87324; 83036; 87636; 71046; 93971; 71275; G0378 ×4; J1200; J1650 ×2; J3490; J7512 ×2; Q9967; J2919 ×2